=== PATIENT | female | born 1955 | race Caucasian/White ===

== ENCOUNTER 2018-12-10 07:55 | Emergency (ER) | payer BC, MEDICARE ==
[~2018-12-10] VITALS: Ht 167.6 cm; Wt 76.0 kg
[2018-12-10 09:24] VITALS: BP 175/71
== END 2018-12-10 10:54 | disposition home or self-care (01) ==
LOC: ED 09:14
DX: N30.00 Acute cystitis without hematuria (principal); E10.65 Type 1 diabetes mellitus with hyperglycemia; E86.0 Dehydration; N28.9 Disorder of kidney and ureter, unspecified; I10 Essential (primary) hypertension
CPT/HCPCS: 36415; 74022; 80053; 81001; 82010; 82800; 82962; 83690; 83735; 84100; 85025; 87086; 99284

== ENCOUNTER 2020-12-27 07:14 | Inpatient (IN) | payer BC, MEDICARE ==
[~2020-12-27] VITALS: Ht 166.4 cm; Wt 71.2 kg
[2020-12-27] MEDS ORDERED: SODIUM CHLORIDE FLUSH 10ML SYR IVF ONE (08:30)
[2020-12-27 08:41] LABS: BASOPHILS % (AUTO) 0 % (0-1); EOSINOPHILS % (AUTO) 0 % (1-7); LYMPHOCYTES % (AUTO) 10 % (22-44); MEAN CORPUSCULAR HEMOGLOBIN 26.8 pg (27.0-34.8); MEAN CORPUSCULAR HGB CONC 33.1 g/dL (32.4-35.8); MEAN PLATELET VOLUME 7.3 fL (7.4-10.4); MONOCYTES % (AUTO) 7 % (2-9); NEUTROPHILS % (AUTO) 84 % (42-75); PLATELET COUNT 273 x10^3/uL (130-400); RED CELL DISTRIBUTION WIDTH 15.4 % (9.6-15.2)
[2020-12-27 08:48] LABS: ALANINE AMINOTRANSFERASE 14 U/L (12-78); ALBUMIN 1.8 g/dL (3.4-5.0); ANION GAP 10 mmol/L (5-15); CALCIUM 7.9 mg/dL (8.5-10.1); CHLORIDE 99 mmol/L (98-107); CREATININE 1.48 mg/dL (0.55-1.02)
[2020-12-27 08:59] LABS: ALKALINE PHOSPHATASE 54 U/L (45-117); BILIRUBIN,TOTAL 0.3 mg/dL (0.2-1.0); TOTAL PROTEIN 5.9 g/dL (6.4-8.2)
--- NOTE | 2020-12-27 09:03 | NUR ---
PT UPRIGHT ON GURNEY AWAKE & CALM, RESPONDS APPROP TO STAFF, NAD WITH SUPPL O2 IN PLACE, COMFORT MEAASURES PROVIDED, CALL LIGHT WITHIN REACH.
[2020-12-27] MEDS ORDERED: CEFTRIAXONE 1,000 MG in DEXTROSE 5% 50 ML IVPB ONE (09:30)
[2020-12-27] MEDS ORDERED: SODIUM CHLORIDE 0.9% 1,000ML IVBOLUS ONE (09:30)
[2020-12-27] MEDS ORDERED: DEXAMETHASONE 4 MG/ML, 1ML IVPush ONE (09:30)
[2020-12-27] MEDS ORDERED: DEXAMETHASONE 4 MG/ML, 1ML ONE (09:32)
--- NOTE | 2020-12-27 10:00 | NUR ---
PT UPRIGHT ON GURNEY AWAKE & COMFORTABLE, RESPONDS APPROP TO STAFF AND RESISTANT TO CARE- STATES "I'M GOING TO LEAVE AMA BECAUSE I NEED TO GO VISIT MY SICK FRIEND" DESPITE BEING EDUCATED ON COVID PRECAUTIONS, NAD, COMFORT MEASURES PROVIDED, [facility] AT BS, CALL LIGHT WITHIN REACH.
[2020-12-27 10:05] LABS: HCT (SEDRATE) 32.5 % (34.6-47.8)
--- NOTE | 2020-12-27 10:08 | NUR ---
Pt to be admitted to MEDICAL, room 349. Report called to AUTUMN.
[2020-12-27] MEDS ORDERED: ONDANSETRON ODT 4 MG PO PRN (10:30)
[2020-12-27] MEDS ORDERED: ACETAMINOPHEN 500 MG TABLET PO PRN (10:30)
[2020-12-27] MEDS ORDERED: POLYETHYLENE GLYCOL 17 GM PACKET PO PRN (10:30)
[2020-12-27] MEDS ORDERED: ONDANSETRON 2MG/ML, 2ML IVPush PRN (10:30)
[2020-12-27 10:50] VITALS: BP 168/81
[2020-12-27] MEDS ORDERED: INSULIN LISPRO 100 UNITS/ML, PEN SQ-INSULIN SCH (11:00)
[2020-12-27] MEDS: HEPARIN 5,000 UNITS/ML, 1ML SQ SCH ×2 (13:42→21:22)
[2020-12-27] MEDS: CEFTRIAXONE 1,000 MG in DEXTROSE 5% 50 ML IVPB SCH (13:43)
[2020-12-27] MEDS: AZITHROMYCIN 500 MG TABLET PO SCH (13:43)
[2020-12-27 14:29] LABS: MICROSCOPIC NOT IND
[2020-12-27 14:55] VITALS: BP 154/84
[2020-12-27] MEDS: INSULIN LISPRO 100 UNITS/ML, PEN SQ-INSULIN SCH ×2 (16:28→21:28)
[2020-12-27 19:16] VITALS: BP 121/66
[2020-12-27] MEDS: LATANOPROST OPHTH 0.005%, 2.5ML LEFTEYE SCH (20:52)
[2020-12-27] MEDS: MELATONIN 5 MG TABLET PO SCH (21:00)
[2020-12-27] MEDS: THIAMINE 100MG TABLET PO SCH (21:21)
[2020-12-27] MEDS: ASCORBIC ACID 500 MG TABLET PO SCH (21:22)
[2020-12-27] MEDS: SIMVASTATIN 40 MG TABLET PO SCH (21:22)
[2020-12-27] MEDS: INSULIN GLARGINE 100 UNITS/ML, PEN SQ-INSULIN SCH (21:28)
[2020-12-27] MEDS ORDERED: CHOL400C11 PO (23:39)
[2020-12-28 00:14] VITALS: BP 137/80
[2020-12-28] MEDS: HEPARIN 5,000 UNITS/ML, 1ML SQ SCH ×3 (04:55→20:47)
[2020-12-28] MEDS: ASPIRIN 81 MG TABLET EC PO SCH (04:55)
[2020-12-28 06:14] LABS: BASOPHILS % (AUTO) 0 % (0-1); EOSINOPHILS % (AUTO) 0 % (1-7); LYMPHOCYTES % (AUTO) 8 % (22-44); MEAN CORPUSCULAR HEMOGLOBIN 26.9 pg (27.0-34.8); MEAN CORPUSCULAR HGB CONC 33.1 g/dL (32.4-35.8); MEAN PLATELET VOLUME 7.8 fL (7.4-10.4); MONOCYTES % (AUTO) 6 % (2-9); NEUTROPHILS % (AUTO) 86 % (42-75); PLATELET COUNT 322 x10^3/uL (130-400); RED BLOOD COUNT 4.24 x10^6/uL (3.82-5.3); RED CELL DISTRIBUTION WIDTH 15.2 % (9.6-15.2)
[2020-12-28] MEDS ORDERED: prednisone PO (06:26)
[2020-12-28] MEDS ORDERED: SIMV40TA20 PO (06:26)
[2020-12-28] MEDS ORDERED: diltiazem PO (06:26)
[2020-12-28] MEDS ORDERED: LOSARTAN PO ×2 (06:26→17:31)
[2020-12-28 06:30] LABS: CHLORIDE 104 mmol/L (98-107)
[2020-12-28 06:44] LABS: ALANINE AMINOTRANSFERASE 14 U/L (12-78); ALBUMIN 1.9 g/dL (3.4-5.0); ALKALINE PHOSPHATASE 56 U/L (45-117); ANION GAP 7 mmol/L (5-15); BILIRUBIN,TOTAL 0.5 mg/dL (0.2-1.0); CALCIUM 8.6 mg/dL (8.5-10.1); CREATININE 1.27 mg/dL (0.55-1.02); TOTAL PROTEIN 6.5 g/dL (6.4-8.2)
[2020-12-28] MEDS ORDERED: REMDESIVIR 200 MG in SODIUM CHLORIDE 0.9% 100 ML IVPB ONE (08:00)
[2020-12-28] MEDS: TACROLIMUS 1 MG CAPSULE PO SCH (08:13)
[2020-12-28] MEDS: DEXAMETHASONE 4 MG/ML, 1ML IVPush SCH (08:13)
[2020-12-28] MEDS: DILTIAZEM 240 MG CAP.ER.24H PO SCH (08:14)
[2020-12-28] MEDS: AZITHROMYCIN 500 MG TABLET PO SCH (08:14)
[2020-12-28] MEDS: ZINC SULFATE 220 MG CAPSULE PO SCH (08:15)
[2020-12-28] MEDS: CHOLECALCIFEROL 5,000u TAB PO SCH (08:16)
[2020-12-28] MEDS: ASCORBIC ACID 500 MG TABLET PO SCH ×2 (08:16→20:45)
[2020-12-28] MEDS: THIAMINE 100MG TABLET PO SCH ×2 (08:16→20:45)
[2020-12-28] MEDS: SENNA/DOCUSATE TABLET PO SCH (08:16)
[2020-12-28] MEDS: INSULIN LISPRO 100 UNITS/ML, PEN SQ-INSULIN SCH ×4 (08:20→20:48)
[2020-12-28 08:27] VITALS: BP 172/81
[2020-12-28] MEDS ORDERED: INSULIN GLARGINE 100 UNITS/ML, PEN SQ-INSULIN SCH (12:30)
[2020-12-28 12:41] VITALS: BP 117/72
[2020-12-28] MEDS: CEFTRIAXONE 1,000 MG in DEXTROSE 5% 50 ML IVPB SCH (12:48)
[2020-12-28] MEDS ORDERED: PRED5TAB PO (17:31)
[2020-12-28] MEDS ORDERED: SIMV80TA18 PO (17:31)
[2020-12-28] MEDS ORDERED: MYCO360T PO (17:31)
[2020-12-28] MEDS ORDERED: TACR1CAP5 PO (17:31)
[2020-12-28] MEDS ORDERED: ASPI-963 PO (17:31)
[2020-12-28 18:46] VITALS: BP 118/62
[2020-12-28] MEDS ORDERED: LORazepam 0.5MG TABLET PO ONE (20:00)
[2020-12-28] MEDS: SIMVASTATIN 40 MG TABLET PO SCH (20:45)
[2020-12-28] MEDS: LATANOPROST OPHTH 0.005%, 2.5ML LEFTEYE SCH (20:45)
[2020-12-28] MEDS: MELATONIN 5 MG TABLET PO SCH (20:46)
[2020-12-28] MEDS: INSULIN GLARGINE 100 UNITS/ML, PEN SQ-INSULIN SCH (20:48)
[2020-12-29 00:34] VITALS: BP 129/73
[2020-12-29] MEDS: ASPIRIN 81 MG TABLET EC PO SCH (05:27)
[2020-12-29] MEDS: HEPARIN 5,000 UNITS/ML, 1ML SQ SCH ×3 (05:28→20:50)
[2020-12-29 05:55] LABS: BASOPHILS % (AUTO) 0 % (0-1); EOSINOPHILS % (AUTO) 0 % (1-7); LYMPHOCYTES % (AUTO) 8 % (22-44); MEAN CORPUSCULAR HEMOGLOBIN 26.4 pg (27.0-34.8); MEAN CORPUSCULAR HGB CONC 32.7 g/dL (32.4-35.8); MEAN PLATELET VOLUME 7.4 fL (7.4-10.4); MONOCYTES % (AUTO) 5 % (2-9); NEUTROPHILS % (AUTO) 88 % (42-75); PLATELET COUNT 387 x10^3/uL (130-400); RED BLOOD COUNT 4.08 x10^6/uL (3.82-5.3); RED CELL DISTRIBUTION WIDTH 15.5 % (9.6-15.2)
[2020-12-29 06:02] LABS: CHLORIDE 101 mmol/L (98-107)
[2020-12-29 06:19] LABS: ALANINE AMINOTRANSFERASE 15 U/L (12-78); ALBUMIN 1.9 g/dL (3.4-5.0); ALKALINE PHOSPHATASE 57 U/L (45-117); ANION GAP 10 mmol/L (5-15); BILIRUBIN,TOTAL 0.2 mg/dL (0.2-1.0); CALCIUM 8.7 mg/dL (8.5-10.1); CREATININE 1.43 mg/dL (0.55-1.02); TOTAL PROTEIN 6.3 g/dL (6.4-8.2)
[2020-12-29] MEDS: REMDESIVIR 100 MG in SODIUM CHLORIDE 0.9% 100 ML IVPB SCH (08:38)
[2020-12-29] MEDS: DEXAMETHASONE 4 MG/ML, 1ML IVPush SCH (08:39)
[2020-12-29] MEDS: ZINC SULFATE 220 MG CAPSULE PO SCH (08:40)
[2020-12-29] MEDS: THIAMINE 100MG TABLET PO SCH ×2 (08:40→20:50)
[2020-12-29] MEDS: AZITHROMYCIN 500 MG TABLET PO SCH (08:40)
[2020-12-29] MEDS: TACROLIMUS 1 MG CAPSULE PO SCH (08:40)
[2020-12-29] MEDS: DILTIAZEM 240 MG CAP.ER.24H PO SCH (08:42)
[2020-12-29] MEDS: SENNA/DOCUSATE TABLET PO SCH (08:42)
[2020-12-29] MEDS: CHOLECALCIFEROL 5,000u TAB PO SCH (08:42)
[2020-12-29] MEDS: ASCORBIC ACID 500 MG TABLET PO SCH ×2 (08:42→20:50)
[2020-12-29] MEDS: INSULIN LISPRO 100 UNITS/ML, PEN SQ-INSULIN SCH ×4 (08:45→20:55)
[2020-12-29] MEDS: INSULIN GLARGINE 100 UNITS/ML, PEN SQ-INSULIN SCH (08:45)
[2020-12-29 09:29] VITALS: BP 146/67
[2020-12-29] MEDS: CEFTRIAXONE 1,000 MG in DEXTROSE 5% 50 ML IVPB SCH (13:50)
[2020-12-29 14:04] VITALS: BP 116/73
[2020-12-29 19:04] VITALS: BP 126/88
[2020-12-29] MEDS: SIMVASTATIN 40 MG TABLET PO SCH (20:50)
[2020-12-29] MEDS: MELATONIN 5 MG TABLET PO SCH (20:50)
[2020-12-29] MEDS: LATANOPROST OPHTH 0.005%, 2.5ML LEFTEYE SCH (20:55)
[2020-12-29] MEDS ORDERED: INSULIN GLARGINE 100 UNITS/ML, PEN SQ-INSULIN SCH (21:00)
[2020-12-30 00:51] VITALS: BP 127/77
[2020-12-30] MEDS: LORazepam 0.5MG TABLET PO PRN ×3 (01:00→20:23)
[2020-12-30] MEDS: ASPIRIN 81 MG TABLET EC PO SCH (05:07)
[2020-12-30] MEDS: HEPARIN 5,000 UNITS/ML, 1ML SQ SCH ×3 (05:07→20:22)
[2020-12-30 05:46] LABS: HCT (SEDRATE) 34.1 % (34.6-47.8)
[2020-12-30 05:48] LABS: BASOPHILS % (AUTO) 0 % (0-1); EOSINOPHILS % (AUTO) 0 % (1-7); LYMPHOCYTES % (AUTO) 6 % (22-44); MEAN CORPUSCULAR HEMOGLOBIN 26.1 pg (27.0-34.8); MEAN CORPUSCULAR HGB CONC 32.5 g/dL (32.4-35.8); MEAN PLATELET VOLUME 7.4 fL (7.4-10.4); MONOCYTES % (AUTO) 5 % (2-9); NEUTROPHILS % (AUTO) 89 % (42-75); PLATELET COUNT 475 x10^3/uL (130-400); RED BLOOD COUNT 4.25 x10^6/uL (3.82-5.3); RED CELL DISTRIBUTION WIDTH 15.4 % (9.6-15.2)
[2020-12-30 05:54] LABS: CHLORIDE 99 mmol/L (98-107)
[2020-12-30 06:08] LABS: ALANINE AMINOTRANSFERASE 15 U/L (12-78); ALBUMIN 1.8 g/dL (3.4-5.0); ALKALINE PHOSPHATASE 64 U/L (45-117); ANION GAP 10 mmol/L (5-15); BILIRUBIN,TOTAL 0.2 mg/dL (0.2-1.0); CALCIUM 8.9 mg/dL (8.5-10.1); CREATININE 1.62 mg/dL (0.55-1.02); TOTAL PROTEIN 6.5 g/dL (6.4-8.2)
[2020-12-30] MEDS: REMDESIVIR 100 MG in SODIUM CHLORIDE 0.9% 100 ML IVPB SCH (08:04)
[2020-12-30] MEDS: TACROLIMUS 1 MG CAPSULE PO SCH (08:05)
[2020-12-30] MEDS: CHOLECALCIFEROL 5,000u TAB PO SCH (08:05)
[2020-12-30] MEDS: SENNA/DOCUSATE TABLET PO SCH (08:05)
[2020-12-30] MEDS: AZITHROMYCIN 500 MG TABLET PO SCH (08:05)
[2020-12-30] MEDS: DILTIAZEM 240 MG CAP.ER.24H PO SCH (08:05)
[2020-12-30] MEDS: ASCORBIC ACID 500 MG TABLET PO SCH ×2 (08:05→20:21)
[2020-12-30] MEDS: THIAMINE 100MG TABLET PO SCH ×2 (08:05→20:22)
[2020-12-30] MEDS: ZINC SULFATE 220 MG CAPSULE PO SCH (08:05)
[2020-12-30] MEDS: DEXAMETHASONE 4 MG/ML, 1ML IVPush SCH (08:06)
[2020-12-30] MEDS: INSULIN GLARGINE 100 UNITS/ML, PEN SQ-INSULIN SCH (08:17)
[2020-12-30] MEDS: INSULIN LISPRO 100 UNITS/ML, PEN SQ-INSULIN SCH ×4 (08:17→20:28)
[2020-12-30 08:26] VITALS: BP 128/82
[2020-12-30] MEDS: CEFTRIAXONE 1,000 MG in DEXTROSE 5% 50 ML IVPB SCH (14:24)
[2020-12-30 15:48] VITALS: BP 137/69
[2020-12-30 18:27] VITALS: BP 139/72
[2020-12-30] MEDS: LATANOPROST OPHTH 0.005%, 2.5ML LEFTEYE SCH (20:20)
[2020-12-30] MEDS: SIMVASTATIN 40 MG TABLET PO SCH (20:21)
[2020-12-30] MEDS: MELATONIN 5 MG TABLET PO SCH (20:22)
[2020-12-30] MEDS ORDERED: INSULIN GLARGINE 100 UNITS/ML, PEN SQ-INSULIN SCH (21:00)
[2020-12-31 01:37] VITALS: BP 127/65
[2020-12-31] MEDS: LORazepam 2 MG/ML, 1ML IVPush PRN (02:31)
[2020-12-31] MEDS: HEPARIN 5,000 UNITS/ML, 1ML SQ SCH ×3 (05:00→20:05)
[2020-12-31] MEDS: ASPIRIN 81 MG TABLET EC PO SCH (06:00)
[2020-12-31 07:17] VITALS: BP 152/72
[2020-12-31] MEDS: INSULIN LISPRO 100 UNITS/ML, PEN SQ-INSULIN SCH ×4 (08:35→20:15)
[2020-12-31 08:45] LABS: BASOPHILS % (AUTO) 0 % (0-1); EOSINOPHILS % (AUTO) 0 % (1-7); LYMPHOCYTES % (AUTO) 5 % (22-44); MEAN CORPUSCULAR HEMOGLOBIN 26.2 pg (27.0-34.8); MEAN CORPUSCULAR HGB CONC 32.7 g/dL (32.4-35.8); MEAN PLATELET VOLUME 7.2 fL (7.4-10.4); MONOCYTES % (AUTO) 5 % (2-9); NEUTROPHILS % (AUTO) 91 % (42-75); PLATELET COUNT 566 x10^3/uL (130-400); RED BLOOD COUNT 4.25 x10^6/uL (3.82-5.3); RED CELL DISTRIBUTION WIDTH 15.3 % (9.6-15.2)
[2020-12-31] MEDS: REMDESIVIR 100 MG in SODIUM CHLORIDE 0.9% 100 ML IVPB SCH (08:45)
[2020-12-31 08:56] LABS: ALBUMIN 1.9 g/dL (3.4-5.0); ANION GAP 14 mmol/L (5-15); CALCIUM 8.9 mg/dL (8.5-10.1); CHLORIDE 100 mmol/L (98-107)
[2020-12-31] MEDS ORDERED: INSULIN GLARGINE 100 UNITS/ML, PEN SQ-INSULIN SCH ×2 (09:00→21:00)
[2020-12-31 09:04] LABS: ALANINE AMINOTRANSFERASE 14 U/L (12-78); ALKALINE PHOSPHATASE 68 U/L (45-117); BILIRUBIN,TOTAL 0.3 mg/dL (0.2-1.0); CREATININE 1.83 mg/dL (0.55-1.02); TOTAL PROTEIN 6.4 g/dL (6.4-8.2)
[2020-12-31] MEDS: TACROLIMUS 1 MG CAPSULE PO SCH (10:16)
[2020-12-31] MEDS: AZITHROMYCIN 500 MG TABLET PO SCH (10:16)
[2020-12-31] MEDS: ASCORBIC ACID 500 MG TABLET PO SCH ×2 (10:16→20:04)
[2020-12-31] MEDS: SENNA/DOCUSATE TABLET PO SCH (10:16)
[2020-12-31] MEDS: THIAMINE 100MG TABLET PO SCH ×2 (10:16→20:04)
[2020-12-31] MEDS: DILTIAZEM 240 MG CAP.ER.24H PO SCH (10:17)
[2020-12-31] MEDS: CHOLECALCIFEROL 5,000u TAB PO SCH (10:17)
[2020-12-31] MEDS: ZINC SULFATE 220 MG CAPSULE PO SCH (10:18)
[2020-12-31] MEDS: DEXAMETHASONE 4 MG/ML, 1ML IVPush SCH (10:25)
[2020-12-31] MEDS ORDERED: MAGNESIUM HYDROXIDE 8%, 30ML UDC PO ONE (12:00)
[2020-12-31] MEDS ORDERED: MAGNESIUM HYDROXIDE 8%, 30ML UDC PO PRN (12:00)
[2020-12-31 12:31] VITALS: BP 158/74
[2020-12-31] MEDS: CEFTRIAXONE 1,000 MG in DEXTROSE 5% 50 ML IVPB SCH (15:11)
[2020-12-31] MEDS: LORazepam 0.5MG TABLET PO PRN (16:29)
[2020-12-31] MEDS: LATANOPROST OPHTH 0.005%, 2.5ML LEFTEYE SCH (20:03)
[2020-12-31] MEDS: MELATONIN 5 MG TABLET PO SCH (20:04)
[2020-12-31] MEDS: SIMVASTATIN 40 MG TABLET PO SCH (20:04)
[2020-12-31 20:17] VITALS: BP 122/71
[2021-01-01 01:52] VITALS: BP 154/71
[2021-01-01] MEDS: ASPIRIN 81 MG TABLET EC PO SCH (05:54)
[2021-01-01] MEDS: HEPARIN 5,000 UNITS/ML, 1ML SQ SCH ×3 (05:55→23:38)
[2021-01-01 06:26] LABS: CHLORIDE 107 mmol/L (98-107)
[2021-01-01 06:33] LABS: BASOPHILS % (AUTO) 0 % (0-1); EOSINOPHILS % (AUTO) 0 % (1-7); LYMPHOCYTES % (AUTO) 7 % (22-44); MEAN CORPUSCULAR HEMOGLOBIN 26.7 pg (27.0-34.8); MEAN CORPUSCULAR HGB CONC 33.6 g/dL (32.4-35.8); MEAN PLATELET VOLUME 7.2 fL (7.4-10.4); MONOCYTES % (AUTO) 5 % (2-9); NEUTROPHILS % (AUTO) 88 % (42-75); PLATELET COUNT 548 x10^3/uL (130-400); RED BLOOD COUNT 4.17 x10^6/uL (3.82-5.3); RED CELL DISTRIBUTION WIDTH 15.4 % (9.6-15.2)
[2021-01-01 06:50] LABS: ALANINE AMINOTRANSFERASE 15 U/L (12-78); ALBUMIN 1.9 g/dL (3.4-5.0); ALKALINE PHOSPHATASE 65 U/L (45-117); ANION GAP 10 mmol/L (5-15); BILIRUBIN,TOTAL 0.2 mg/dL (0.2-1.0); CREATININE 1.78 mg/dL (0.55-1.02); TOTAL PROTEIN 6.1 g/dL (6.4-8.2)
[2021-01-01] MEDS: REMDESIVIR 100 MG in SODIUM CHLORIDE 0.9% 100 ML IVPB SCH (08:14)
[2021-01-01] MEDS: TACROLIMUS 1 MG CAPSULE PO SCH (08:19)
[2021-01-01] MEDS: SENNA/DOCUSATE TABLET PO SCH (08:19)
[2021-01-01] MEDS: DEXAMETHASONE 4 MG/ML, 1ML IVPush SCH (08:19)
[2021-01-01] MEDS: ASCORBIC ACID 500 MG TABLET PO SCH ×2 (08:19→21:00)
[2021-01-01] MEDS: DILTIAZEM 240 MG CAP.ER.24H PO SCH (08:20)
[2021-01-01] MEDS: CHOLECALCIFEROL 5,000u TAB PO SCH (08:20)
[2021-01-01] MEDS: THIAMINE 100MG TABLET PO SCH ×2 (08:20→21:00)
[2021-01-01] MEDS: ZINC SULFATE 220 MG CAPSULE PO SCH (08:20)
[2021-01-01 08:34] VITALS: BP 152/72
[2021-01-01] MEDS ORDERED: INSULIN GLARGINE 100 UNITS/ML, PEN SQ-INSULIN SCH ×2 (09:00→21:00)
[2021-01-01] MEDS: INSULIN LISPRO 100 UNITS/ML, PEN SQ-INSULIN SCH ×4 (10:08→21:29)
[2021-01-01 12:00] VITALS: BP 150/73
[2021-01-01] MEDS ORDERED: FUROSEMIDE 40 MG/4 ML IV SCH (13:30)
[2021-01-01] MEDS: CEFTRIAXONE 1,000 MG in DEXTROSE 5% 50 ML IVPB SCH (13:58)
[2021-01-01] MEDS: LORazepam 0.5MG TABLET PO PRN ×2 (14:03→20:44)
[2021-01-01] MEDS ORDERED: HALOPERIDOL 5 MG/ML IV PRN (15:00)
[2021-01-01 15:45] LABS: O2 FLOW 40 L/min
[2021-01-01] MEDS: HALOPERIDOL 5 MG/ML IM PRN (17:10)
[2021-01-01 19:15] VITALS: BP 126/72
[2021-01-01] MEDS: MELATONIN 5 MG TABLET PO SCH (21:00)
[2021-01-01] MEDS: SIMVASTATIN 40 MG TABLET PO SCH (21:00)
[2021-01-01] MEDS: LATANOPROST OPHTH 0.005%, 2.5ML LEFTEYE SCH (21:00)
[2021-01-01] MEDS ORDERED: ZIPRASIDONE 20 MG INJ IM ONE (21:00)
[2021-01-02 01:33] VITALS: BP 147/79
[2021-01-02] MEDS ORDERED: ZIPRASIDONE 20 MG INJ IM ONE (03:00)
[2021-01-02] MEDS: ASPIRIN 81 MG TABLET EC PO SCH (06:00)
[2021-01-02 06:07] LABS: ALBUMIN 2.2 g/dL (3.4-5.0); ANION GAP 10 mmol/L (5-15); CALCIUM 9.3 mg/dL (8.5-10.1); CHLORIDE 109 mmol/L (98-107)
[2021-01-02 06:11] LABS: ALANINE AMINOTRANSFERASE 20 U/L (12-78); ALKALINE PHOSPHATASE 72 U/L (45-117); BILIRUBIN,TOTAL 0.3 mg/dL (0.2-1.0); CREATININE 1.84 mg/dL (0.55-1.02); TOTAL PROTEIN 6.7 g/dL (6.4-8.2)
[2021-01-02 06:13] LABS: MEAN CORPUSCULAR HGB CONC 33.8 g/dL (32.4-35.8); MEAN PLATELET VOLUME 7.1 fL (7.4-10.4); PLATELET COUNT 627 x10^3/uL (130-400); RED BLOOD COUNT 4.18 x10^6/uL (3.82-5.3); RED CELL DISTRIBUTION WIDTH 15.3 % (9.6-15.2)
[2021-01-02 06:45] LABS: ANISOCYTOSIS 1+; LYMPHS% (MANUAL) 5 % (22-44); MONOS% (MANUAL) 5 % (2-9); SEGS% (MANUAL) 90 % (42-75)
[2021-01-02 06:46] LABS: <PLATELET ESTIMATE> INCREASED; <PLT MORPHOLOGY> NORMAL PLT MORPH; ECHINOCYTES 1+; OVALOCYTES 1+
[2021-01-02] MEDS: HEPARIN 5,000 UNITS/ML, 1ML SQ SCH ×3 (07:30→23:52)
[2021-01-02 07:34] LABS: C-REACTIVE PROTEIN, QUANT 2.1 mg/dL (0.02-0.49)
[2021-01-02] MEDS: HALOPERIDOL 5 MG/ML IM PRN ×2 (08:48→15:33)
[2021-01-02] MEDS: INSULIN LISPRO 100 UNITS/ML, PEN SQ-INSULIN SCH ×4 (08:53→20:37)
[2021-01-02] MEDS: SENNA/DOCUSATE TABLET PO SCH (08:55)
[2021-01-02] MEDS: ZINC SULFATE 220 MG CAPSULE PO SCH (08:55)
[2021-01-02] MEDS: TACROLIMUS 1 MG CAPSULE PO SCH (08:55)
[2021-01-02] MEDS: DILTIAZEM 240 MG CAP.ER.24H PO SCH (08:56)
[2021-01-02] MEDS: THIAMINE 100MG TABLET PO SCH ×2 (08:56→21:00)
[2021-01-02] MEDS: ASCORBIC ACID 500 MG TABLET PO SCH ×2 (08:56→21:00)
[2021-01-02] MEDS: CHOLECALCIFEROL 5,000u TAB PO SCH (08:56)
[2021-01-02] MEDS: DEXAMETHASONE 4 MG TABLET PO SCH (08:58)
[2021-01-02] MEDS: INSULIN GLARGINE 100 UNITS/ML, PEN SQ-INSULIN SCH ×2 (09:00→20:29)
[2021-01-02] MEDS ORDERED: DEXAMETHASONE 4 MG/ML, 1ML PO SCH (09:00)
[2021-01-02] MEDS: FUROSEMIDE 40 MG TABLET PO SCH (09:00)
[2021-01-02] MEDS: LORazepam 0.5MG TABLET PO PRN ×2 (09:00→15:33)
[2021-01-02 09:10] VITALS: BP 147/64
[2021-01-02 18:28] VITALS: BP 164/62
[2021-01-02 19:49] VITALS: BP 155/73
[2021-01-02] MEDS: SIMVASTATIN 40 MG TABLET PO SCH (21:00)
[2021-01-02] MEDS: MELATONIN 5 MG TABLET PO SCH (21:00)
[2021-01-02] MEDS: LATANOPROST OPHTH 0.005%, 2.5ML LEFTEYE SCH (21:00)
[2021-01-02] MEDS: LORazepam 2 MG/ML, 1ML IVPush PRN (23:52)
[2021-01-03 00:17] VITALS: BP 161/75
[2021-01-03] MEDS: ASPIRIN 81 MG TABLET EC PO SCH (05:35)
[2021-01-03 06:37] LABS: MEAN CORPUSCULAR HEMOGLOBIN 27.3 pg (27.0-34.8); MEAN CORPUSCULAR HGB CONC 33.3 g/dL (32.4-35.8); PLATELET COUNT 621 x10^3/uL (130-400); RED BLOOD COUNT 4.27 x10^6/uL (3.82-5.3); RED CELL DISTRIBUTION WIDTH 15.8 % (9.6-15.2)
[2021-01-03 06:39] LABS: ANION GAP 8 mmol/L (5-15); CALCIUM 9.4 mg/dL (8.5-10.1); CHLORIDE 115 mmol/L (98-107)
[2021-01-03 06:40] LABS: CREATININE 1.68 mg/dL (0.55-1.02)
[2021-01-03] MEDS: INSULIN LISPRO 100 UNITS/ML, PEN SQ-INSULIN SCH (07:00)
[2021-01-03] MEDS: HEPARIN 5,000 UNITS/ML, 1ML SQ SCH (07:30)
[2021-01-03 08:28] VITALS: BP 182/78
[2021-01-03] MEDS: DEXAMETHASONE 4 MG TABLET PO SCH (08:44)
[2021-01-03] MEDS: DILTIAZEM 240 MG CAP.ER.24H PO SCH (08:44)
[2021-01-03] MEDS: FUROSEMIDE 40 MG TABLET PO SCH (08:44)
[2021-01-03] MEDS: ZINC SULFATE 220 MG CAPSULE PO SCH (08:45)
[2021-01-03] MEDS: ASCORBIC ACID 500 MG TABLET PO SCH (08:45)
[2021-01-03] MEDS: TACROLIMUS 1 MG CAPSULE PO SCH (08:45)
[2021-01-03] MEDS: CHOLECALCIFEROL 5,000u TAB PO SCH (08:45)
[2021-01-03] MEDS: SENNA/DOCUSATE TABLET PO SCH (08:45)
[2021-01-03] MEDS: THIAMINE 100MG TABLET PO SCH (08:45)
[2021-01-03 08:46] LABS: BAND#(MANUAL) 0.63 x10^3/uL; BANDS%(MANUAL) 3 % (0-7); LYMPH#(MANUAL) 0.21 x10^3/uL (1-3.4); LYMPHS% (MANUAL) 1 % (22-44); METAMYELOCYTES# (MANUAL) 0.21 x10^3/uL (0-0); METAMYELOCYTES% (MANUAL) 1 % (0-1); MONOS#(MANUAL) 1.69 x10^3/uL (0.3-2.7); MONOS% (MANUAL) 8 % (2-9); SEG#(MANUAL) 18.36 x10^3/uL (1.8-6.8); SEGS% (MANUAL) 87 % (42-75)
[2021-01-03 08:47] LABS: <PLATELET ESTIMATE> INCREASED; <PLT MORPHOLOGY> NORMAL PLT MORPH; ANISOCYTOSIS 1+; MICROCYTOSIS 1+; OVALOCYTES 1+; TEAR DROPS 1+
[2021-01-03] MEDS: INSULIN GLARGINE 100 UNITS/ML, PEN SQ-INSULIN SCH (09:00)
[2021-01-03] MEDS ORDERED: LORazepam 2 MG/ML, 1ML IVPush PRN (09:30)
[2021-01-03] MEDS ORDERED: ONDANSETRON 2MG/ML, 2ML IVPush PRN (11:30)
[2021-01-03] MEDS ORDERED: SCOPOLAMINE 1MG PATCH TD PRN (11:30)
[2021-01-03] MEDS ORDERED: MORPHINE SULFATE 4 MG/ML, 1ML IVPush PRN (11:30)
[2021-01-03] MEDS: MORPHINE SULFATE 4 MG/ML, 1ML IVPush PRN ×6 (12:17→21:38)
[2021-01-03] MEDS: LORazepam 2 MG/ML, 1ML IVPush PRN ×5 (12:36→20:09)
[2021-01-03 19:21] VITALS: BP 160/69
[2021-01-03] MEDS: MELATONIN 5 MG TABLET PO SCH (20:09)
[2021-01-04] MEDS: LORazepam 2 MG/ML, 1ML IVPush PRN ×5 (00:29→11:29)
[2021-01-04] MEDS: MORPHINE SULFATE 4 MG/ML, 1ML IVPush PRN ×5 (02:40→12:17)
== END 2021-01-04 15:39 | DRG 871 ==
LOC: ED 08:48 → 3N 09:24
PROVIDERS: ADMIT Hospitalist; ATTEND Family Medicine
PROC: XW033E5 Introduction of Remdesivir Anti-infective into Peripheral Vein, Percutaneous Approach, New Technology Group 5 (ICD-10-PCS; principal; 2020-12-27)
PROC: 5A0935A Assistance with Respiratory Ventilation, Less than 24 Consecutive Hours, High Flow/Velocity Cannula (ICD-10-PCS; 2020-12-27)
PROC: 5A0935A Assistance with Respiratory Ventilation, Less than 24 Consecutive Hours, High Flow/Velocity Cannula (ICD-10-PCS; 2020-12-28)
PROC: 5A0935A Assistance with Respiratory Ventilation, Less than 24 Consecutive Hours, High Flow/Velocity Cannula (ICD-10-PCS; 2020-12-29)
DX: A41.9 Sepsis, unspecified organism (principal); U07.1 COVID-19; J12.82 Pneumonia due to coronavirus disease 2019; J96.01 Acute respiratory failure with hypoxia; G93.41 Metabolic encephalopathy; E87.1 Hypo-osmolality and hyponatremia; D84.9 Immunodeficiency, unspecified; D64.9 Anemia, unspecified; E11.22 Type 2 diabetes mellitus with diabetic chronic kidney disease; E11.65 Type 2 diabetes mellitus with hyperglycemia; E78.5 Hyperlipidemia, unspecified; E86.0 Dehydration; F41.9 Anxiety disorder, unspecified; I12.9 Hypertensive chronic kidney disease with stage 1 through stage 4 chronic kidney disease, or unspecified chronic kidney disease; R91.8 Other nonspecific abnormal finding of lung field; N18.9 Chronic kidney disease, unspecified; Z51.5 Encounter for palliative care; Z66 Do not resuscitate; Z78.1 Physical restraint status; Z94.0 Kidney transplant status; Z79.01 Long term (current) use of anticoagulants; Z88.8 Allergy status to other drugs, medicaments and biological substances; Z28.3 Underimmunization status
CPT/HCPCS: 36415; 36600; 71045; 80048; 80053; 81003; 82728; 82803; 82947; 82962; 83036; 83605; 83615; 83880; 84145; 84443; 84484; 85025; 85379; 85651; 86140; 87040; 87086; 93005; 96374; 96375; G0378; J0696; J1100; J1644; J1940; J3486; J7507; U0005; J1630; J1815; J2060; J2270; J7030; U0003